=== PATIENT | female | born 1995 | race Two or more races ===

== ENCOUNTER 2017-01-24 00:23 | Emergency (ER) | payer MEDICAID ==
[~2017-01-24] VITALS: Ht 157.5 cm; Wt 108.9 kg
[~2017-01-24 00:23] MED LIST: ALBU8.5H2 IH
--- NOTE | 2017-01-24 00:30 | NUR ---
To bed 6 a 21 yo female bibself with c/o cough and congestion since thursday. Per patient, she has yellow sputum. Patient is aaox4, ambulatory. No s/s of acute distress. afebrile. VSS. Gowned. Awaiting for er md kaplan.
[2017-01-24] MEDS ORDERED: ALBUTEROL FS 2.5 MG/3 ML VIAL.NEB ONE (00:52)
[2017-01-24] MEDS ORDERED: DEXAMETHASONE SOD PHOSPHATE 10 MG/ML VIAL ONE ×2 (00:58→01:00)
[2017-01-24] MEDS ORDERED: ALBUTEROL FS 2.5 MG/3 ML VIAL.NEB CONTNEB ONE (01:00)
[2017-01-24] MEDS ORDERED: DEXAMETHASONE SOD PHOSPHATE 4 MG/ML VIAL IV ONE (01:00)
--- NOTE | 2017-01-24 01:01 | NUR ---
RT AT BEDSIDE.
--- NOTE | 2017-01-24 01:03 | NUR ---
Pt. medicated as ordered.
--- NOTE | 2017-01-24 02:10 | NUR ---
Patient discharged to home in stable condition. Written and verbal after care instructions given. Patient verbalizes understanding of instruction. Patient is ambulatory with steady gait. No further complaints.
[2017-01-24 02:31] VITALS: BP 125/77
== END 2017-01-24 02:32 | disposition home or self-care (01) ==
LOC: ER 00:25
DX: J45.901 Unspecified asthma with (acute) exacerbation (principal); J06.9 Acute upper respiratory infection, unspecified
CPT/HCPCS: A4606; J1100; Z7610